=== PATIENT | male | born 1965 | race Two or more races ===

== ENCOUNTER 2023-09-28 13:29 | Emergency (ER) | payer OTHER ==
[~2023-09-28] VITALS: Ht 182.9 cm; Wt 78.9 kg
[2023-09-28] MEDS ORDERED: 0.9 % SODIUM CHLORIDE 500 ML IV ONE (15:30)
[2023-09-28] MEDS ORDERED: LACTOBACILLUS ACIDOPHILUS 1 CAP CAP PO ONE (15:30)
[2023-09-28] MEDS ORDERED: FAMOTIDINE/PF 20 MG/2 ML VIAL IV ONE (15:30)
[2023-09-28 16:19] LABS: HEMATOCRIT 43.7 % (39.0-48.0); MEAN CELL VOLUME 95.7 fL (80.0-100.00); MEAN CORPUSCULAR HEMOGLOBIN 32.9 pg (27.00-32.0); MEAN CORPUSCULAR HGB CONC 34.3 g/dl (32.0-36.0); PLATELET COUNT 230 K/uL (150-450); RED BLOOD COUNT 4.57 M/uL (4.00-6.00); RED CELL DISTRIBUTION WIDTH 13.8 % (11.5-14.5)
[2023-09-28 16:22] LABS: PH,URINE 6.5 (5.0-8.0); URINE APPEARANCE Clear; URINE BILIRRUBIN Negative (NEGATIVE); URINE BLOOD Negative; URINE COLOR Yellow; URINE GLUCOSE Negative (NEGATIVE); URINE LEUKOCYTE Negative; URINE NITRATE Negative; URINE PROTEIN Trace (NEGATIVE); URINE UROBILINOGEN 0.2 E.U./dl
[2023-09-28 16:26] LABS: URINE BACTERIA 23.9 uL (0.0-1933); URINE EPITHELIAL CELLS 1.8 uL (0.0-38.8); URINE RBC 2.8 uL (0.0-20.8); URINE WBC 3.2 uL (0.0-23.2)
[2023-09-28 16:54] LABS: CALCIUM 10.4 mg/dL (8.5-10.1); GFR 76.48; POTASSIUM 3.79 mEq/L (3.5-5.1)
[2023-09-28] MEDS ORDERED: PEPCID AC20 MG PO (18:29)
[2023-09-28] MEDS ORDERED: DICY20TA PO (18:29)
[2023-09-28] MEDS ORDERED: INTESTINEX680 M1 PO (18:29)
== END 2023-09-28 18:43 ==
LOC: ER 13:30
PROVIDERS: Nurse Practitioner Family
DX: K52.89 Other specified noninfective gastroenteritis and colitis (principal); Z88.6 Allergy status to analgesic agent; Z85.038 Personal history of other malignant neoplasm of large intestine; Z20.822 Contact with and (suspected) exposure to COVID-19

== ENCOUNTER → 2024-08-22 | Emergency (ER) | payer OTHER ==
[~2024-08-22] VITALS: Ht 175.3 cm; Wt 76.7 kg
[~2024-08-22] MED LIST: DICY20TA PO; INTESTINEX680 M1 PO; PEPCID AC20 MG PO; TRAMADOL HCL 50 MG TABLET PO ONE; TRIAMCINOLONE ACETONIDE 40 MG/ML VIAL IM ONE; TRIAMCINOLONE ACETONIDE 40 MG/ML VIAL ONE
== END | disposition home or self-care (01) ==
LOC: ER 09:48
DX: M25.552 Pain in left hip (principal); Z88.6 Allergy status to analgesic agent